=== PATIENT | female | born 1935 | race Caucasian/White ===

== ENCOUNTER 2025-01-08 16:11 | Inpatient (IN) | payer MEDICARE ==
[~2025-01-08] VITALS: Ht 170.2 cm; Wt 57.2 kg
[2025-01-08] MEDS: IV NORMAL SALINE 1000 ML BAG IV ONE (16:35)
[2025-01-08] MEDS: CEFTRIAXONE 1 G in IV DEXTROSE 5% 50 ML IV ONE (16:45)
[2025-01-08] MEDS ORDERED: CEFTRIAXONE 1 G VIAL ONE (16:46)
[2025-01-08 17:10] LABS: PLATELET COUNT (AUTO) 227 K/uL (179-408); RED BLOOD CELL COUNT(AUTO) 3.98 MIL/uL (3.63-4.92); RED CELL DISTRIBUTION WIDTH 17.3 % (12.3-17.7); WHITE BLOOD COUNT (AUTO) 8.4 K/uL (3.8-11.8)
[2025-01-08 17:11] LABS: *BILIRUBIN,URIN NEGATIVE (NEGATIVE); *BLOOD, URINE 3+ (NEGATIVE); *CLARITY,URINE CLOUDY (CLEAR); *COLOR,URINE YELLOW (YELLOW); *KETONES,URINE TRACE (NEGATIVE); *PROTEIN,URINE 3+ (NEGATIVE); *UROBILINOGEN,URINE 0.2 E.U./dl (NORMAL); LEUKOCYTE ESTERASE ,URINE 1+ (NEGATIVE); NITRITE, URINE NEGATIVE (NEGATIVE); UGLUCOSE 3+ (NEGATIVE)
[2025-01-08 17:15] LABS: CREATININE 1.9 mg/dL (0.6-1.3); SODIUM SERUM 129 mmol/L (136-145); UREA NITROGEN, BLOOD 31 mg/dL (7-18)
[2025-01-08 17:18] LABS: IRON, SERUM 20 ug/dL (50-175)
[2025-01-08 17:22] LABS: ASPARTATE AMINOTRANSFERASE 9 U/L (15-37); TOTAL PROTEIN, SERUM 6.9 g/dL (6.4-8.2)
[2025-01-08 17:25] LABS: LACTIC ACID 2.0 mmol/L (0.4-2.0)
[2025-01-08 17:34] LABS: SQUAMOUS EPITHELIAL CELL,UR FEW /HPF (NONE SEEN)
[2025-01-08] MEDS ORDERED: REMEDY ESSENTIAL ZINC PASTE 113 GM TP PRN (18:00)
[2025-01-08] MEDS ORDERED: IV NS 1000 ML 1,000 ML IV PRN (18:00)
[2025-01-08] MEDS ORDERED: MAGNESIUM HYDROXIDE 30 ML LIQUID UDC PO PRN (18:00)
[2025-01-08] MEDS: CEFTRIAXONE 1 G in IV DEXTROSE 5% 50 ML IV SCH (18:00)
[2025-01-08] MEDS ORDERED: ONDANSETRON 4 MG/2 ML VIAL IV PRN (18:00)
[2025-01-08] MEDS ORDERED: DEXTROSE 50% 50 ML DISP.SYRIN IV PRN (18:00)
[2025-01-08] MEDS ORDERED: DICL75TA5 PO (18:41)
[2025-01-08] MEDS ORDERED: METO-356 PO (18:41)
[2025-01-08] MEDS ORDERED: MIRT7.5T10 PO (18:41)
[2025-01-08] MEDS: INSULIN REGULAR, HUMAN 1000 UNIT/10 ML VIAL SQ PRN (20:02)
[2025-01-08] MEDS: BLOOD SUGAR DIAGNOSTIC 1 EACH STRIP VI SCH (20:12)
[2025-01-08] MEDS: MIRTAZAPINE 15 MG TABLET PO SCH (20:12)
[2025-01-08] MEDS: IV NS 1000 ML 1,000 ML IV PRN (20:13)
[2025-01-08] MEDS: SODIUM ZIRCONIUM CYCLOSILICATE 10 GM POWD.PACK PO ONE (20:13)
[2025-01-08] MEDS: ALPRAZOLAM 0.5 MG TABLET PO PRN (21:45)
[2025-01-09] MEDS: OXYCODONE/APAP 5-325 MG TABLET PO PRN (00:06)
[2025-01-09 00:07] VITALS: BP 136/65; TEMP 98.5; O2SAT 98
[2025-01-09 04:29] VITALS: BP 120/48; TEMP 98.4; O2SAT 99
[2025-01-09] MEDS: PANTOPRAZOLE SODIUM 40 MG TABLET.DR PO SCH (06:28)
[2025-01-09] MEDS: ACETAMINOPHEN 325 MG TABLET PO PRN (06:31)
[2025-01-09 07:07] LABS: PLATELET COUNT (AUTO) 220 K/uL (179-408); RED BLOOD CELL COUNT(AUTO) 3.55 MIL/uL (3.63-4.92); RED CELL DISTRIBUTION WIDTH 16.8 % (12.3-17.7); WHITE BLOOD COUNT (AUTO) 8.2 K/uL (3.8-11.8)
[2025-01-09 07:09] LABS: CREATININE 1.8 mg/dL (0.6-1.3); SODIUM SERUM 133 mmol/L (136-145); UREA NITROGEN, BLOOD 26 mg/dL (7-18)
[2025-01-09 07:30] VITALS: BP 127/48; TEMP 98.3; O2SAT 94
[2025-01-09 08:31] LABS: NEUTROPHILS % (MANUAL) 63 % (42-75)
[2025-01-09 08:32] LABS: EOSINOPHILS % (MANUAL) 1 % (0-8); LYMPHOCYTES % (MANUAL) 17 % (20-40); MONOCYTES % (MANUAL) 17 % (2-10); PLATELET ESTIMATE ADEQUATE
[2025-01-09] MEDS: METOPROLOL SUCCINATE XL 25 MG TAB.SR.24H PO SCH (08:34)
[2025-01-09 11:15] VITALS: BP 107/57; TEMP 98.2; O2SAT 95
[2025-01-09] MEDS ORDERED: PRAV20TA4 PO (12:00)
[2025-01-09] MEDS ORDERED: DULO30CA52 PO (12:00)
[2025-01-09] MEDS ORDERED: AMIT25TA9 PO (12:01)
[2025-01-09] MEDS ORDERED: METH-806 PO (12:02)
[2025-01-09] MEDS ORDERED: INSU100I24 SQ (12:03)
[2025-01-09] MEDS ORDERED: ESCI-9 PO (12:03)
[2025-01-09] MEDS ORDERED: IBUP-76 PO (12:04)
[2025-01-09] MEDS ORDERED: INSU100C4 SQ (12:05)
[2025-01-09] MEDS: NEUTRA PHOS PACKET PO ONE (12:07)
[2025-01-09 13:52] LABS: *BILIRUBIN,URIN NEGATIVE (NEGATIVE); *BLOOD, URINE 2+ (NEGATIVE); *CLARITY,URINE CLOUDY (CLEAR); *COLOR,URINE YELLOW (YELLOW); *KETONES,URINE NEGATIVE (NEGATIVE); *PROTEIN,URINE 2+ (NEGATIVE); *UROBILINOGEN,URINE 0.2 E.U./dl (NORMAL); LEUKOCYTE ESTERASE ,URINE 3+ (NEGATIVE); NITRITE, URINE NEGATIVE (NEGATIVE); UGLUCOSE TRACE (NEGATIVE)
[2025-01-09 14:00] LABS: *CREATININE,URINE 41.6 mg/dL (30-125); *SODIUM RNDM,URINE 60.0 mmol/L (40-220); *URINE TOTAL PROTEIN RANDOM 85.0 mg/dL (<150/24HR)
[2025-01-09 14:11] LABS: SQUAMOUS EPITHELIAL CELL,UR MODERATE /HPF (NONE SEEN)
[2025-01-09 14:12] LABS: URINE AMORPHOUS URATE MODERATE /HPF
[2025-01-09 15:10] VITALS: BP 128/48; TEMP 98.3; O2SAT 98
[2025-01-09] MEDS: GLUCERNA SHAKE 237 ML CAN PO SCH (17:00)
[2025-01-09 19:00] VITALS: BP 137/45; TEMP 98.8; O2SAT 98
[2025-01-09] MEDS: METHOCARBAMOL 500 MG TABLET PO ONE (20:21)
[2025-01-10 06:33] VITALS: BP 120/46; TEMP 98.1; O2SAT 96
[2025-01-10 06:46] LABS: PLATELET COUNT (AUTO) 214 K/uL (179-408); RED BLOOD CELL COUNT(AUTO) 3.42 MIL/uL (3.63-4.92); RED CELL DISTRIBUTION WIDTH 16.7 % (12.3-17.7); WHITE BLOOD COUNT (AUTO) 5.4 K/uL (3.8-11.8)
[2025-01-10 07:07] LABS: ASPARTATE AMINOTRANSFERASE 11 U/L (15-37); CREATINE KINASE, TOTAL 71 U/L (26-192); CREATININE 1.7 mg/dL (0.6-1.3); SODIUM SERUM 136 mmol/L (136-145); TOTAL PROTEIN, SERUM 6.5 g/dL (6.4-8.2); UREA NITROGEN, BLOOD 20 mg/dL (7-18)
[2025-01-10] MEDS: NEUTRA PHOS PACKET PO ONE (08:48)
[2025-01-10] MEDS: METOPROLOL SUCCINATE XL 25 MG TAB.SR.24H PO SCH (08:48)
[2025-01-10 11:09] VITALS: BP 115/42; TEMP 97.6; O2SAT 94
[2025-01-10 12:06] LABS: LYMPHOCYTES % (MANUAL) 18 % (20-40); MONOCYTES % (MANUAL) 15 % (2-10); NEUTROPHILS % (MANUAL) 65 % (42-75)
[2025-01-10 12:07] LABS: EOSINOPHILS % (MANUAL) 2 % (0-8); PLATELET ESTIMATE ADEQUATE
[2025-01-10 15:11] VITALS: BP 140/65; TEMP 98.4; O2SAT 91
[2025-01-10] MEDS ORDERED: IBUPROFEN 200 MG TABLET PO PRN (15:15)
[2025-01-10] MEDS ORDERED: DICLOFENAC 75 MG TABLET.DR PO PRN (15:15)
[2025-01-10] MEDS ORDERED: AMITRIPTYLINE HCL 25 MG TABLET PO PRN (15:15)
[2025-01-10 19:20] VITALS: BP 145/51; TEMP 99.1; O2SAT 96
[2025-01-10] MEDS: DULOXETINE 30 MG CAPSULE.DR PO SCH (20:56)
[2025-01-10] MEDS: ATORVASTATIN 20 MG TABLET PO SCH (20:56)
[2025-01-10] MEDS: ESCITALOPRAM OXALATE 10 MG TABLET PO SCH (20:56)
[2025-01-10] MEDS: METHOCARBAMOL 500 MG TABLET PO PRN (23:13)
[2025-01-11 05:08] LABS: PTH, INTACT 273 pg/mL (15-65)
[2025-01-11 06:26] VITALS: BP 139/54; TEMP 98.2; O2SAT 90
[2025-01-11 07:12] LABS: PLATELET COUNT (AUTO) 204 K/uL (179-408); RED BLOOD CELL COUNT(AUTO) 3.37 MIL/uL (3.63-4.92); RED CELL DISTRIBUTION WIDTH 16.9 % (12.3-17.7); WHITE BLOOD COUNT (AUTO) 4.2 K/uL (3.8-11.8)
[2025-01-11 07:16] LABS: CREATININE 1.5 mg/dL (0.6-1.3); SODIUM SERUM 137 mmol/L (136-145); UREA NITROGEN, BLOOD 17 mg/dL (7-18)
[2025-01-11 07:32] LABS: EOSINOPHILS % (MANUAL) 2 % (0-8); LYMPHOCYTES % (MANUAL) 19 % (20-40); MONOCYTES % (MANUAL) 15 % (2-10); NEUTROPHILS % (MANUAL) 64 % (42-75)
[2025-01-11 07:33] LABS: PLATELET ESTIMATE ADEQUATE
[2025-01-11] MEDS ORDERED: CEPH500T PO ×2 (10:35→11:33)
[2025-01-11 10:45] VITALS: BP 119/52; TEMP 97.8; O2SAT 97
== END 2025-01-11 12:05 | disposition home or self-care (01) | DRG 871 ==
LOC: ER 16:11 → TELE3 18:14 → MEDSURG3 01-09 09:25
PROVIDERS: ADMIT Nurse Practitioner Acute Care; ATTEND Nurse Practitioner Acute Care
PROC: 05HA33Z Insertion of Infusion Device into Left Brachial Vein, Percutaneous Approach (ICD-10-PCS; principal; 2025-01-09)
DX: A41.50 Gram-negative sepsis, unspecified (principal); E43 Unspecified severe protein-calorie malnutrition; N17.0 Acute kidney failure with tubular necrosis; N39.0 Urinary tract infection, site not specified; E87.20 Acidosis, unspecified; Z68.1 Body mass index [BMI] 19.9 or less, adult; E87.1 Hypo-osmolality and hyponatremia; R65.20 Severe sepsis without septic shock; Z85.07 Personal history of malignant neoplasm of pancreas; Z92.21 Personal history of antineoplastic chemotherapy; Z92.3 Personal history of irradiation; E11.22 Type 2 diabetes mellitus with diabetic chronic kidney disease; E11.65 Type 2 diabetes mellitus with hyperglycemia; I12.9 Hypertensive chronic kidney disease with stage 1 through stage 4 chronic kidney disease, or unspecified chronic kidney disease; N18.9 Chronic kidney disease, unspecified; E86.0 Dehydration; E87.5 Hyperkalemia; T85.848D Pain due to other internal prosthetic devices, implants and grafts, subsequent encounter; G89.29 Other chronic pain; D64.9 Anemia, unspecified; F32.A Depression, unspecified; Z79.4 Long term (current) use of insulin; Z85.01 Personal history of malignant neoplasm of esophagus; Z85.831 Personal history of malignant neoplasm of soft tissue; Z88.2 Allergy status to sulfonamides; Z88.5 Allergy status to narcotic agent; Z90.411 Acquired partial absence of pancreas; Z93.3 Colostomy status; Z90.49 Acquired absence of other specified parts of digestive tract; Z85.038 Personal history of other malignant neoplasm of large intestine; K76.9 Liver disease, unspecified
CPT/HCPCS: 36415; 70030-TC; 70450; 71045; 73140; 76770; 83550; 83605; 83735; 83970; 84100; 84155; 84165; 84300; 84443; 84484; 85025; 85730; 86850; 86900; 86901; 87040; 87086; 93307; A4606; A4663; G0378; J0696; J1815; J7040